=== PATIENT | male | born 1965 | race Caucasian/White ===

== ENCOUNTER 2021-10-17 08:21 | Emergency (ER) | payer OTHER ==
[2021-10-17 09:15] VITALS: BP 139/84; PULSE 75; TEMP 98.1; BMI 28.5
[2021-10-17] MEDS ORDERED: MECLIZINE HCL 25 MG TABLET (FP) PO ONE (10:07)
[2021-10-17] MEDS ORDERED: SODIUM CHLORIDE 0.9% 500 ML INFUS.BAG IV ONE (10:25)
[2021-10-17] MEDS ORDERED: MECLIZINE HCL 25 MG TABLET (FP) ONE (10:34)
[2021-10-17 11:24] LABS: BASO % 0.5 % (0-2.0); HEMATOCRIT 46.4 % (35.4-49); HEMOGLOBIN 15.9 GM/dL (11.7-16.9); LYMPH % 26.8 % (8-40); MCH 29.4 pg (25.7-33.7); MCHC 34.2 g/dl (32.0-35.9); MEAN CELL VOLUME 85.9 fl (80-96); MEAN PLT VOLUME 7.7 fl (7.5-11.1); NEUT % 65.7 % (42.8-82.8); PLATELET COUNT 240 10^3/uL (134-434); RBC 5.41 M/mm3 (4.00-5.60); RDW 14.1 % (11.9-15.9); WHITE BLOOD COUNT 5.5 K/mm3 (4.0-10.0)
[2021-10-17 11:42] LABS: CHLORIDE 108 mmol/L (98-107); SODIUM 143 mmol/L (136-145)
[2021-10-17 11:44] LABS: ALBUMIN 4.2 g/dl (3.4-5.0); ANION GAP 5 MMOL/L (8-16); BLOOD UREA NITROGEN 12.4 mg/dL (7-18); CALCIUM 9.4 mg/dL (8.5-10.1); CO2 30 mmol/L (21-32); GLUCOSE,RANDOM 94 mg/dL (74-106)
[2021-10-17 11:47] LABS: CREATININE 1.2 mg/dL (0.55-1.3); SGPT/ALT 39 U/L (13-61)
[2021-10-17 11:48] LABS: SGOT/AST 24 U/L (15-37)
[2021-10-17 11:49] LABS: BILIRUBIN,TOTAL 0.6 mg/dL (0.2-1); TOT PROT 7.7 g/dl (6.4-8.2)
[2021-10-17 11:50] LABS: ALK PHOS 66 U/L (45-117)
== END 2021-10-17 13:02 | disposition home or self-care (01) ==
LOC: JER 08:21
DX: R42 Dizziness and giddiness (principal)
CPT/HCPCS: 36415; 70450-TC; 80053; 84443; 84484; 85025; 93005; 93010; 99285-25